=== PATIENT | male | born 1940 | race Caucasian/White ===

== ENCOUNTER → 2016-08-06 | Outpatient (CLI) | payer BC ==
[~2016-08-06] MED LIST: GLYB5TAB8 PO; LEVOPOW36 PO; LPT/40 PO; METFORMIN HCL PO; MISCTAB88 PO; VERA120T15 PO
[2016-08-06 12:48] LABS: BASO % 0.3 %; BASO ABS # 0.03 K/uL (0-0.2); COMPLETE YES; EOS % 1.9 %; HEMATOCRIT 45.1 % (42-52); IG% 0.3 %; LYMPH % 20.1 %; LYMPH ABS # 2.13 K/uL (1.2-3.4); MEAN CELL VOLUME 95.3 fL (80-100); MEAN CORPUSCULAR HEMOGLOBIN 30.7 pg (25-34); MEAN CORPUSCULAR HGB CONC 32.2 g/dl (32-36); MONO % 10.5 %; NEUT % 66.9 %; PLATELET COUNT 212 K/uL (130-400); RED BLOOD COUNT 4.73 M/uL (4.7-6.1); WHITE BLOOD COUNT 10.59 K/uL (4.8-10.8)
[2016-08-06 12:50] LABS: ALT/SGPT 19 U/L (12-78); AST/SGOT 11 U/L (15-37); BLOOD UREA NITROGEN 17 mg/dl (7-18); BUN/CREATININE RATIO 16.7 (10-20); CALCIUM 9.2 mg/dl (8.5-10.1); CARBON DIOXIDE 25 mmol/L (21-32); CHLORIDE 102 mmol/L (98-107); CHOLESTEROL 96 mg/dl (0-200); GLUCOSE 147 mg/dl (70-99); POTASSIUM 4.3 mmol/L (3.5-5.1); SODIUM 140 mmol/L (136-145); TRIGLYCERIDES 195 mg/dl (0-150); VERY LOW DENSITY LIPOPROT CALC 39 mg/dl
[2016-08-06 12:53] LABS: ALB/GLOB RATIO 0.9 (0.9-2); ALKALINE PHOSPHATASE 71 U/L (45-117); CHOLESTEROL/HDL RATIO 3.2; HDL CHOLESTEROL 30 mg/dl; LDL CHOLESTEROL CALCULATED 27 mg/dl
[2016-08-06 13:14] LABS: URINE APPEARANCE CLOUDY (CLEAR); URINE BILIRUBIN NEG (NEG); URINE COLOR YELLOW; URINE NITRITE POS (NEG); URINE SPECIFIC GRAVITY 1.017 (1.000-1.030); UROBILINOGEN NEG (NEG); ZZUR CULT IF INDIC CLEAN CATCH YES
[2016-08-06 13:20] LABS: ESTIMATED AVERAGE GLUCOSE 166 mg/dl; HA1C FLAG Normal (Normal)
[2016-08-06 13:21] LABS: MANUAL MICROSCOPIC REQUIRED? NO; REVIEW REQ? NO
[2016-08-06 13:28] LABS: RATIO 53.4 mcg/mg (0-30.0)
== END | disposition home or self-care (01) ==
LOC: C.LABBFT 07:39
PROVIDERS: ATTEND Internal Medicine
DX: E78.5 Hyperlipidemia, unspecified (principal); E11.9 Type 2 diabetes mellitus without complications

== ENCOUNTER → 2016-12-17 | Outpatient (CLI) | payer BC ==
[2016-12-17 12:54] LABS: THYROID STIMULATING HORMONE 2.6 uIu/ml (0.300-4.500)
[2016-12-17 12:59] LABS: ESTIMATED AVERAGE GLUCOSE 157 mg/dl; HA1C FLAG Normal (Normal)
== END | disposition home or self-care (01) ==
LOC: C.LABBFT 08:22
PROVIDERS: ATTEND Internal Medicine
DX: E11.9 Type 2 diabetes mellitus without complications (principal); E03.9 Hypothyroidism, unspecified

== ENCOUNTER → 2017-04-15 | Day surgery (SDC) | payer BC ==
[2017-04-04 11:25] VITALS: BMI 28.0
--- NOTE | 2017-04-04 11:56 | PAT Medication Instructions ---
Service Date Apr 04, 2017. Current Home Medication List Atorvastatin (Lipitor), 40 MG PO HS Betamethasone Dip (Betamethasone Dipropionat), 1 APPLN TOP BID Glyburide (Micronase), 10 MG PO BID Levothyroxine Sodium (Levothyroxine Sodium), 1 TAB PO QAM Metformin Hcl (Glucophage), 1,000 MG PO BID Verapamil (Calan), 120 MG PO QAM [Clotrimazole 1%], 1 DOSE TOP PRN Medication Instructions For Your Scheduled Surgery - Hold the following medications 48 hours prior to surgery: Metformin Hcl (Glucophage), 1,000 MG PO BID - Hold the following medications 24 hours prior to surgery: [Clotrimazole 1%], 1 DOSE TOP PRN Betamethasone Dip (Betamethasone Dipropionat), 1 APPLN TOP BID - Hold the following medications the morning of surgery: Glyburide (Micronase), 10 MG PO BID - Take the following medications the morning of surgery with a sip of water OTHERWISE NOTHING TO EAT OR DRINK AFTER MIDNIGHT: Levothyroxine Sodium (Levothyroxine Sodium), 1 TAB PO QAM Verapamil (Calan), 120 MG PO QAM - Take the following medications as scheduled the night before surgery: Atorvastatin (Lipitor), 40 MG PO HS Glyburide (Micronase), 10 MG PO BID If you have any questions please call us at [phone] or [phone] or [phone]
[2017-04-04 12:37] LABS: BASO % 0.2 %; BASO ABS # 0.02 K/uL (0-0.2); COMPLETE YES; EOS % 1.4 %; HEMATOCRIT 47.7 % (42-52); IG% 0.6 %; LYMPH ABS # 2.28 K/uL (1.2-3.4); MEAN CELL VOLUME 97.1 fL (80-100); MEAN CORPUSCULAR HEMOGLOBIN 32.4 pg (25-34); MEAN CORPUSCULAR HGB CONC 33.3 g/dl (32-36); MEAN PLATELET VOLUME 12.9 fL (7.4-10.4); MONO % 8.9 %; NEUT % 68.9 %; PLATELET COUNT 215 K/uL (130-400); RED BLOOD COUNT 4.91 M/uL (4.7-6.1); WHITE BLOOD COUNT 11.41 K/uL (4.8-10.8)
--- NOTE | 2017-04-04 12:39 | DIAGNOSTIC IMAGING REPORT ---
CHEST 2 VIEWS ROUTINE HISTORY: 77 years-old Male PAT preoperative exam. No acute chest complaints. COMPARISON: None available TECHNIQUE: PA and lateral views of the chest FINDINGS: Cardiac silhouette is moderately enlarged. Atherosclerosis of the aorta. There is moderate right hemidiaphragmatic elevation. Hazy bibasilar opacities suggest atelectasis or scarring. There is no pneumothorax, pleural effusion or focal airspace consolidation identified. Moderate degenerative changes of the shoulders. Multilevel endplate spurring of the spine. IMPRESSION: 1. Moderate right hemidiaphragmatic elevation without acute cardiopulmonary process. 2. Cardiomegaly without overt pulmonary edema. The above report was generated using voice recognition software. It may contain grammatical, syntax or spelling errors. Electronically signed by: Bruno Pardo M.D. 04/04/2017 12:38 PM Dictated Date/Time: 04/04/2017 12:36 PM
[2017-04-04 12:58] LABS: URINE APPEARANCE CLOUDY (CLEAR); URINE BILIRUBIN NEG (NEG); URINE COLOR YELLOW; URINE EPITHELIAL CELL AUTO 20-30 /lpf (0-5); URINE NITRITE NEG (NEG); URINE SPECIFIC GRAVITY 1.032 (1.000-1.030); UROBILINOGEN NEG (NEG)
[2017-04-04 13:05] LABS: MANUAL MICROSCOPIC REQUIRED? NO; REVIEW REQ? YES
[2017-04-04 13:20] LABS: CREATININE 0.96 mg/dl (0.60-1.40); POTASSIUM 4.2 mmol/L (3.5-5.1)
[~2017-04-15] VITALS: Ht 180.3 cm; Wt 93.9 kg
[~2017-04-15] MED LIST changes: +ATROPINE SULFATE 0.1 MG/ML 5ML SYR IV PRN; +BACITRACIN OINT 15 GM TUBE ONE; +BUPIVACAINE 0.5 % 5 MG/1 ML MPF 30ML VIAL ONE; +CEFAZOLIN 3000MG IV PUSH 15 ML IV SCH; +CLC/300 PO; +CLOTRIMAZOLE 1% TOP; +DPRSCR15 TOP; +EpHEDrine SULFATE INJ 50 MG/ML AMP IV PRN; +FENTANYL CITRATE INJ 50 MCG/1 ML 2 ML VIAL ONE; +LACTATED RINGER'S 1000ML 1,000 ML IV SCH; +LEVO50TA6 PO; -LEVOPOW36 PO; +LIDOCAINE HCL 1% 20 ML VIAL ONE; +LIDOCAINE HCL 2% 2 ML VIAL (20MG/ML) ONE; +METF-384 PO; -METFORMIN HCL PO; +MIDAZOLAM HCL 1 MG/ML 2ML VIAL ONE; -MISCTAB88 PO; +ONDANSETRON INJ 2 MG/ML 2 ML VIAL ONE; +OXYC7.5T65 PO; +OXYCODONE/ACETAMINOPHEN 7.5-325 TAB PO PRN; +PROPOFOL IV EMULSION 10 MG/ML 20 ML VIAL IV ONE
[2017-04-15 06:50] VITALS: BP 198/104; PULSE 88; TEMP 36.6; O2SAT 94; Ht 180.3 cm; Wt 93.9 kg
[2017-04-15 06:53] VITALS: BP 198/104; PULSE 88; TEMP 36.6; O2SAT 94
--- NOTE | 2017-04-15 07:10 | History & Physical Bridge Note ---
H&P Re-Evaluation Bridge Note: I have examined the patient, reviewed the History & Physical and in the interval since the performance of the History & Physical I have noted the following changes of clinical significance: No changes noted
--- NOTE | 2017-04-15 07:12 | [facility] Operative Report ---
Operative Report Operative Date Apr 15, 2017. Pre-Operative Diagnosis Phimosis, balanitis Post-Operative Diagnosis same Procedure(s) Performed Circumcision Surgeon Pérez Estimated Blood Loss 15cc Findings Severe phimosis with entrapment of penis and recurrent severe balanitis. Specimens Foreskin./Phimosis Drains None Anesthesia MAC Complication(s) None Disposition Recovery Room / PACU Indications Severe phimosis with entrapment of penis and recurrent severe balanitis. Risks and benefits discussed and patient wishes to proceed. Description of Procedure Patient was consented and brought back to the operating room. Patient was placed under anesthesia in the supine position. Patient was prepped and draped in the regular sterile fashion. A time out was completed. With the timeout completed, the patient was prepped again with betadine as the foreskin was unable to be retracted due to the phimosis. A penile block was competed at the base of the penis at the 1 and 11 oclock position. Also local was placed circumferentially at the base of the penis. The phimotic ring made reduction impossible and a dorsal slit was completed in order to open the phimotic ring with metzenbaum scissors. The foreskin was then reduced and the area was once again cleansed with betadine. The distal and proximal incisions were marked to include the main phimotic ring as well as a secondary ring at the distal foreskin. A good skin cuff was allowed at the distal side and adequate skin was assessed for closure. A scalpel was utilized to make an incision first at the distal and then the proximal markings. The incisions were connected and opened at the dorsal aspect. Small hemostats were used to grasp the foreskin in the four corners and the tissue was dissected with electrocuatery to remove the foreskin. All bleeding was controlled. All major landmarks were identified to lower risk of injury. The wound bed was assessed and all bleeding controlled. At this point the 12 and 6 oclock skin edges were reapproximated with anchoring 3-0 chromic suture. The skin edges were then approximated circumferentially with interrupted simple and horizontal mattress 4 -0 chromic suture utilizing the rule of halves for closure. With the skin edges approximated the area was assessed and cleaned. No areas of concern or issues with bleeding from skin edges. The patient was cleaned and bandaged. The drapes were removed. The patient was cleaned in the surrounding area, aroused from anesthesia, and transferred to the pacu in stable condition having tolerated the procedure well with no complications. I was present and participated in all aspects of the procedure. The patient will be monitored in the PACU until transferred. I attest to the content of the Intraoperative Record and any orders documented therein. Any exceptions are noted below.
--- NOTE | 2017-04-15 07:17 | Discharge Instructions ---
Discharge Instructions Date of Service Apr 15, 2017. Admission Reason for Admission: Phimosis Discharge Discharge Diagnosis / Problem: Severe Balanitis/Phimosis Discharge Goals Goal(s): Decrease discomfort, Improve function Activity Recommendations Activity Limitations: resume your previous activity Lifting Limitations: no more than 10 pounds, no more than 25 pounds Exercise/Sports Limitations: rest today, gradually increase as tolerated May Resume Sexual Activity: after follow-up appointment Shower/Bathe: tomorrow . Instructions / Follow-Up Instructions / Follow-Up Bandage removed tomorrow. Okay if comes off sooner. After off, Wash 2-3 times daily with warm soapy water. Do not scrub. No soaking or baths. Okay to shower. Suture will dissolve over time. Call if any issues or worsening redness or swelling. Call if any fevers. Current Hospital Diet Patient's current hospital diet: Reg Discharge Diet Recommended Diet: Regular Diet Procedures Procedures Performed: Circumcision Pending Studies Studies pending at discharge: no Medical Emergencies . Who to Call and When: Medical Emergencies: If at any time you feel your situation is an emergency, please call 911 immediately. . Non-Emergent Contact Non-Emergency issues call your: Primary Care Provider, Urologist Call Non-Emergent contact if: you have a fever, temperature is above 101, temperature is above 101.5, your pain is not controlled, your pain is worsening , wound has increased drainage, wound has increased redness, wound has increased pain . . "Provider Documentation" section prepared by Maximo Pérez,. . VTE Core Measure Inpt VTE Proph given/why not?: Noemi Nicole, FARHAT's
--- NOTE | 2017-04-15 10:06 | Anesthesiology Progress Note ---
Anesthesia Post Op Note Date & Time Apr 15, 2017 at 10:06 Vital Signs Pain Intensity: 0 Vital Signs Past 12 Hours Date Time Temp Pulse Resp B/P (MAP) Pulse Ox O2 Delivery O2 Flow Rate FiO2 04/15/17 09:57 71 16 93 04/15/17 09:57 71 16 04/15/17 09:56 152/100 04/15/17 09:52 70 16 93 04/15/17 09:52 70 16 04/15/17 09:51 140/85 04/15/17 09:47 75 19 04/15/17 09:47 75 19 94 04/15/17 09:46 128/78 04/15/17 09:44 36.1 74 16 129/85 (99) 94 Oxymask 10 04/15/17 09:44 129/85 04/15/17 06:53 36.6 88 20 198/104 (135) 94 Room Air 04/15/17 06:50 36.6 88 18 198/104 (135) 94 Room Air Notes Mental Status: alert / awake / arousable, participated in evaluation Pt Amnestic to Procedure: Yes Nausea / Vomiting: adequately controlled Pain: adequately controlled Airway Patency, RR, SpO2: stable & adequate BP & HR: stable & adequate Hydration State: stable & adequate Anesthetic Complications: no major complications apparent
[2017-04-15 10:20] VITALS: BP 136/79; PULSE 69; TEMP 36.3; O2SAT 93
[2017-04-15 10:50] VITALS: BP 112/62; PULSE 72; TEMP 36.4; O2SAT 93
[2017-04-15 11:45] VITALS: BP 147/81; PULSE 69; TEMP 36.3; O2SAT 93
== END | disposition home or self-care (01) ==
LOC: C.ACU 05:32
PROVIDERS: ATTEND Urology
DX: N47.1 Phimosis (principal); N48.1 Balanitis; I10 Essential (primary) hypertension; E11.9 Type 2 diabetes mellitus without complications; E78.5 Hyperlipidemia, unspecified; E03.9 Hypothyroidism, unspecified; Z79.899 Other long term (current) drug therapy; E66.9 Obesity, unspecified; Z68.28 Body mass index [BMI] 28.0-28.9, adult; Z98.41 Cataract extraction status, right eye; Z98.42 Cataract extraction status, left eye

== ENCOUNTER → 2017-04-22 | Outpatient (CLI) | payer BC ==
[~2017-04-22] MED LIST changes: -ATROPINE SULFATE 0.1 MG/ML 5ML SYR IV PRN; -BACITRACIN OINT 15 GM TUBE ONE; -BUPIVACAINE 0.5 % 5 MG/1 ML MPF 30ML VIAL ONE; -CEFAZOLIN 3000MG IV PUSH 15 ML IV SCH; -CLC/300 PO; -CLOTRIMAZOLE 1% TOP; -DPRSCR15 TOP; -EpHEDrine SULFATE INJ 50 MG/ML AMP IV PRN; -FENTANYL CITRATE INJ 50 MCG/1 ML 2 ML VIAL ONE; -LACTATED RINGER'S 1000ML 1,000 ML IV SCH; -LIDOCAINE HCL 1% 20 ML VIAL ONE; -LIDOCAINE HCL 2% 2 ML VIAL (20MG/ML) ONE; -MIDAZOLAM HCL 1 MG/ML 2ML VIAL ONE; -ONDANSETRON INJ 2 MG/ML 2 ML VIAL ONE; -OXYCODONE/ACETAMINOPHEN 7.5-325 TAB PO PRN; -PROPOFOL IV EMULSION 10 MG/ML 20 ML VIAL IV ONE
[2017-04-22 13:16] LABS: BLOOD UREA NITROGEN 17 mg/dl (7-18); BUN/CREATININE RATIO 16.5 (10-20); CALCIUM 9.4 mg/dl (8.5-10.1); CARBON DIOXIDE 29 mmol/L (21-32); CHLORIDE 99 mmol/L (98-107); CREATININE 1.04 mg/dl (0.60-1.40); GLUCOSE 176 mg/dl (70-99); POTASSIUM 4.1 mmol/L (3.5-5.1); SODIUM 136 mmol/L (136-145)
== END | disposition home or self-care (01) ==
LOC: C.LABBFT 09:16
PROVIDERS: ATTEND Physician Assistant Medical
DX: E11.9 Type 2 diabetes mellitus without complications (principal)

== ENCOUNTER → 2017-06-12 | Outpatient (CLI) | payer BC ==
[2017-06-12 13:01] LABS: HEMOGLOBIN A1C 7.2 % (4.5-5.6)
== END | disposition home or self-care (01) ==
LOC: C.LABBFT 07:48
PROVIDERS: ATTEND Internal Medicine
DX: E11.9 Type 2 diabetes mellitus without complications (principal)

== ENCOUNTER → 2017-09-23 | Outpatient (CLI) | payer BC ==
[2017-09-23 12:29] LABS: BASO % 0.3 %; BASO ABS # 0.03 K/uL (0-0.2); EOS % 1.8 %; EOS ABS # 0.18 K/uL (0-0.5); HEMATOCRIT 43.7 % (42-52); HEMOGLOBIN 14.2 g/dL (14.0-18.0); IG# 0.05 K/uL (0.00-0.02); LYMPH % 21.3 %; LYMPH ABS # 2.12 K/uL (1.2-3.4); MEAN CELL VOLUME 97.1 fL (80-100); MEAN CORPUSCULAR HEMOGLOBIN 31.6 pg (25-34); MEAN CORPUSCULAR HGB CONC 32.5 g/dl (32-36); MONO % 10.3 %; MONO ABS # 1.02 K/uL (0.11-0.59); NEUT % 65.8 %; NEUT ABS # 6.54 K/uL (1.4-6.5); PLATELET COUNT 203 K/uL (130-400); RED CELL DISTRIBUTION WIDTH CV 13.2 % (11.5-14.5); RED CELL DISTRIBUTION WIDTH SD 46.9 fL (36.4-46.3); WHITE BLOOD COUNT 9.94 K/uL (4.8-10.8)
[2017-09-23 13:08] LABS: ALBUMIN 3.5 gm/dl (3.4-5.0); ALKALINE PHOSPHATASE 69 U/L (45-117); ALT/SGPT 25 U/L (12-78); AST/SGOT 14 U/L (15-37); BLOOD UREA NITROGEN 13 mg/dl (7-18); CALCIUM 8.8 mg/dl (8.5-10.1); CARBON DIOXIDE 31 mmol/L (21-32); CHOLESTEROL 117 mg/dl (0-200); CREATININE 0.98 mg/dl (0.60-1.40); GLUCOSE 167 mg/dl (70-99); LDL CHOLESTEROL CALCULATED 25 mg/dl; POTASSIUM 4.5 mmol/L (3.5-5.1); SODIUM 135 mmol/L (136-145); TOTAL PROTEIN 7.2 gm/dl (6.4-8.2)
[2017-09-23 14:01] LABS: HEMOGLOBIN A1C 8.2 % (4.5-5.6)
== END ==
LOC: C.LABBFT 07:45
PROVIDERS: ATTEND Internal Medicine
DX: E11.9 Type 2 diabetes mellitus without complications (principal); E03.9 Hypothyroidism, unspecified; E78.5 Hyperlipidemia, unspecified